=== PATIENT | male | born 1940 | race Caucasian/White ===

== ENCOUNTER 2016-06-17 | Outpatient (CLI) | payer BC | END 2016-06-17 15:19 | disposition short-term general hospital (02) | CPT/HCPCS: A0425; A0427 ==

== ENCOUNTER 2016-08-26 16:21 | Outpatient (CLI) | payer BC | END 2016-08-26 16:22 | disposition short-term general hospital (02) | DX: R55 Syncope and collapse (principal) | CPT/HCPCS: A0425; A0429 ==

== ENCOUNTER 2017-03-10 01:44 | Outpatient (CLI) | payer BC | END 2017-03-10 01:45 | disposition EMS.NT | LOC: EMS 01:44 | PROVIDERS: ATTEND Surgery | DX: T18.198A Other foreign object in esophagus causing other injury, initial encounter (principal) ==

== ENCOUNTER 2017-05-29 23:43 | Outpatient (CLI) | payer BC | END 2017-05-29 23:44 | disposition short-term general hospital (02) | LOC: EMS 23:43 | PROVIDERS: ATTEND Surgery | DX: T18.198A Other foreign object in esophagus causing other injury, initial encounter (principal) | CPT/HCPCS: A0425; A0429 ==

== ENCOUNTER 2017-07-05 05:10 | Outpatient (CLI) | payer BC | END 2017-07-05 05:11 | disposition short-term general hospital (02) | LOC: EMS 05:10 | PROVIDERS: ATTEND Surgery | DX: R06.00 Dyspnea, unspecified (principal) | CPT/HCPCS: A0425; A0429 ==

== ENCOUNTER 2017-07-05 12:14 | Outpatient (CLI) | payer BC | END 2017-07-05 12:15 | disposition short-term general hospital (02) | LOC: EMS 12:14 | PROVIDERS: ATTEND Surgery | DX: R06.00 Dyspnea, unspecified (principal) | CPT/HCPCS: A0425; A0429 ==

== ENCOUNTER 2017-07-08 23:24 | Outpatient (CLI) | payer BC | END 2017-07-08 23:25 | disposition short-term general hospital (02) | LOC: EMS 23:24 | PROVIDERS: ATTEND Surgery | DX: R05 Cough (principal); R11.2 Nausea with vomiting, unspecified | CPT/HCPCS: A0425; A0429 ==